=== PATIENT | male | born 1985 | race Asian ===

== ENCOUNTER 2018-06-19 12:57 | Emergency (ER) | payer OTHER ==
--- NOTE | 2018-06-19 13:07 | ER Report ---
History and Physical Time Seen By MD: 13:07 Hx. of Stated Complaint: INITIALLY HAD HEADACHE FOR 2 WEEKS, TODAY HE STARTED HAVING LEFT UPPER CHEST PAIN. "I JUST WANT TO MAKE SURE I DON'T HAVE CANCER." HPI/ROS CHIEF COMPLAINT: Headache HISTORY OF PRESENT ILLNESS: 33-year-old male patient presents to emergency room with complaint of headache. Patient states this been going on for quite some time. He states that he's had pain that radiated down his head to his neck. He states he is felt warm at times. He states that he has had the pain of his head switch from the right side to the left side back to the right side. He states he is not having nausea, vomiting or diarrhea. Patient states that he's not having difficulties eating. He does have some concerns about possible cancer. He states that he would like to be tested for cancer in his head as well as his chest. He states he does have an appointment for tomorrow with an ENT for further evaluation. Patient states that he is from [place] and the town in which he is from lots of people will develop cancer. He would like to be tested for cancer, especially EB. REVIEW OF SYSTEMS: Respiratory: No cough, no dyspnea. Cardiovascular: No chest pain, no palpitations. Gastrointestinal: No vomiting, no abdominal pain. Musculoskeletal: No back pain. Allergies: Coded Allergies: No Known Drug Allergies (Unverified , 06/19/18) Home Meds Active Scripts Amoxicillin/Pot Clav 875-125 Mg Tab (AUGMENTIN 875-125 TABLET) 1 Each Tablet, 1 TAB PO Q12H, #14 TAB Prov:JON NIXON 06/19/18 Past Medical/Surgical History Patient has no pertinent medical or surgical history. Reviewed Nurses Notes: Yes Hx Substance Use Disorder: No Constitutional Vital Sign - Last 24 Hours 06/19/18 06/19/18 06/19/18 06/19/18 13:03 13:04 13:30 14:30 Temp 98.4 Pulse 114 104 102 Resp 20 74 40 B/P (MAP) 144/85 144/85 (104) 128/88 (101) 121/91 (101) Pulse Ox 91 93 92 O2 Delivery Room Air 06/19/18 06/19/18 15:00 15:31 Pulse 104 Resp 18 B/P (MAP) 125/86 (99) 127/91 (103) Physical Exam General Appearance: The patient is alert, has no immediate need for airway protection and no current signs of toxicity. Respiratory: Chest is non tender, lungs are clear to auscultation. Cardiac: regular rate and rhythm Gastrointestinal: Abdomen is soft and non tender, no masses, bowel sounds normal. Musculoskeletal: Neck: Neck is supple and non tender. Extremities have full range of motion and are non tender. Skin: No rashes or lesions. Neuro: Patient is alert and oriented 4, cranial nerves II through XII grossly intact. DIFFERENTIAL DIAGNOSIS: After history and physical exam differential diagnosis was considered for headache including but not limited to subarachnoid hemorrhage, migraine headache, tension headache and infectious causes such as meningitis, pharyngitis and sinusitis. Medical Decision Making Data Points Result Diagram: 06/19/18 1335 06/19/18 1335 Laboratory Hematology Test 06/19/18 13:35 Red Blood Count 5.54 M/uL (4.00-5.60) Mean Corpuscular Volume 90.4 fL (80.0-96.0) Mean Corpuscular Hemoglobin 31.1 pg (26.0-33.0) Mean Corpuscular Hemoglobin Concent 34.4 g/dL (32.0-36.0) Red Cell Distribution Width 12.9 % (11.5-14.5) Mean Platelet Volume 8.0 fL (7.2-11.1) Neutrophils (%) (Auto) 81.1 % (39.4-72.5) Lymphocytes (%) (Auto) 13.0 % (17.6-49.6) Monocytes (%) (Auto) 5.4 % (4.1-12.4) Eosinophils (%) (Auto) 0.1 % (0.4-6.7) Basophils (%) (Auto) 0.4 % (0.3-1.4) Nucleated RBC Relative Count (auto) 0.1 /100WBC Neutrophils # (Auto) 5.2 K/uL (2.0-7.4) Lymphocytes # (Auto) 0.8 K/uL (1.3-3.6) Monocytes # (Auto) 0.3 K/uL (0.3-1.0) Eosinophils # (Auto) 0.0 K/uL (0.0-0.5) Basophils # (Auto) 0.0 K/uL (0.0-0.1) Nucleated RBC Absolute Count (auto) 0.00 K/uL Erythrocyte Sedimentation Rate 7 mm/HOUR (0-15) Sodium Level 138 mmol/L (137-145) Potassium Level 3.7 mmol/L (3.5-5.0) Chloride Level 102 mmol/L (98-107) Carbon Dioxide Level 24 mmol/L (22-30) Blood Urea Nitrogen 7 mg/dl (9-21) Creatinine 1.10 mg/dl (0.66-1.25) Glomerular Filtration Rate Calc > 60.0 Random Glucose 173 mg/dl (75-110) Calcium Level 9.3 mg/dl (8.4-10.2) Total Bilirubin 0.5 mg/dl (0.2-1.3) Aspartate Amino Transf (AST/SGOT) 31 U/L (0-35) Alanine Aminotransferase (ALT/SGPT) 41 U/L (0-56) Alkaline Phosphatase 57 U/L (0-126) C-Reactive Protein < 0.5 mg/dl (<1.0) Total Protein 8.0 g/dl (6.3-8.2) Albumin 4.5 g/dl (3.5-5.0) Chemistry Test 06/19/18 13:35 White Blood Count 6.3 k/uL (4.5-11.0) Red Blood Count 5.54 M/uL (4.00-5.60) Hemoglobin 17.2 g/dL (14.0-18.0) Hematocrit 50.1 % (42.0-52.0) Mean Corpuscular Volume 90.4 fL (80.0-96.0) Mean Corpuscular Hemoglobin 31.1 pg (26.0-33.0) Mean Corpuscular Hemoglobin Concent 34.4 g/dL (32.0-36.0) Red Cell Distribution Width 12.9 % (11.5-14.5) Platelet Count 241 K/uL (150-450) Mean Platelet Volume 8.0 fL (7.2-11.1) Neutrophils (%) (Auto) 81.1 % (39.4-72.5) Lymphocytes (%) (Auto) 13.0 % (17.6-49.6) Monocytes (%) (Auto) 5.4 % (4.1-12.4) Eosinophils (%) (Auto) 0.1 % (0.4-6.7) Basophils (%) (Auto) 0.4 % (0.3-1.4) Nucleated RBC Relative Count (auto) 0.1 /100WBC Neutrophils # (Auto) 5.2 K/uL (2.0-7.4) Lymphocytes # (Auto) 0.8 K/uL (1.3-3.6) Monocytes # (Auto) 0.3 K/uL (0.3-1.0) Eosinophils # (Auto) 0.0 K/uL (0.0-0.5) Basophils # (Auto) 0.0 K/uL (0.0-0.1) Nucleated RBC Absolute Count (auto) 0.00 K/uL Erythrocyte Sedimentation Rate 7 mm/HOUR (0-15) Glomerular Filtration Rate Calc > 60.0 Calcium Level 9.3 mg/dl (8.4-10.2) Total Bilirubin 0.5 mg/dl (0.2-1.3) Aspartate Amino Transf (AST/SGOT) 31 U/L (0-35) Alanine Aminotransferase (ALT/SGPT) 41 U/L (0-56) Alkaline Phosphatase 57 U/L (0-126) C-Reactive Protein < 0.5 mg/dl (<1.0) Total Protein 8.0 g/dl (6.3-8.2) Albumin 4.5 g/dl (3.5-5.0) EKG/Imaging Imaging EXAMINATION: CT neck with IV contrast HISTORY: Throat pain. COMPARISON: None. TECHNIQUE: Spiral scan was obtained from the hard palate through the upper c hest during injection of nonionic iodinated intravenous contrast. Sagittal and coronal reformatted images are also submitted. CONTRAST: 75 mL of IV Isovue-370 One of the following dose optimization techniques was utilized in the performance of this exam: Automated exposure control; adjustment of the mA and/or kV according to the patient's size; or use of an iterative reconstruction technique. Specific details can be referenced in the facility's radiology CT exam operational policy. FINDINGS: Masses/lesions: None. Airway: Normal. Vessels: Negative. Musculoskeletal / Body wall: Mild kyphotic curvature of the cervical spine. Lymph node assessment: Mildly prominent pretracheal lymph nodes, the largest measuring up to 9 mm in short axis. Visualized orbits / brain / paranasal sinuses: Mild mucosal thickening in the maxillary sinuses. Upper chest: Negative. IMPRESSION: Mild prominence of pretracheal lymph nodes in the upper mediastinum. Otherwise no CT evidence of acute pathology in the neck. Report Dictated By: Rainer Rowe MD at 06/19/2018 2:44 PM Report E-Signed By: Rainer Rowe MD at 06/19/2018 2:52 PM 2 VIEWS CHEST INDICATION: Chest pain. Right upper quadrant pain. COMPARISON: None available FINDINGS: Cardiomediastinal silhouette and pulmonary vessels within normal limits. There is no focal infiltrate or lobar consolidation. There is no pneumothorax or pleural effusion. No nodule. Upper abdomen is unremarkable. No acute bony abnormality. IMPRESSION: 1. No acute cardiopulmonary process. Report Dictated By: Rufino Guzman at 06/19/2018 2:50 PM Report E-Signed By: Rufino Guzman at 06/19/2018 2:52 PM EXAMINATION: Head CT without intravenous contrast HISTORY: Headache. COMPARISON: None. TECHNIQUE: Contiguous axial images were obtained from the skull base to the vertex without intravenous contrast. Sagittal and coronal reformatted images are also submitted. One of the following dose optimization techniques was utilized in the performance of this exam: Automated exposure control; adjustment of the mA and/or kV according to the patient's size; or use of an iterative reconstruction technique. Specific details can be referenced in the facility's radiology CT exam operational policy. FINDINGS: Brain and intracranial structures: Ventricles, sulci, and cisterns are normal in size. Rose-white matter differentiation is maintained. No midline shift, acute hemorrhage, acute infarct, or mass. Calvarium / scalp: Negative. Skull base / visualized face: Negative. Visualized sinuses / orbits: Mild mucosal thickening in the maxillary sinuses. IMPRESSION: No CT evidence of acute intracranial pathology. Report Dictated By: Rainer Rowe MD at 06/19/2018 2:36 PM Report E-Signed By: Rainer Rowe MD at 06/19/2018 2:44 PM ED Course/Re-evaluation ED Course Patient was admitted to exam room, history and physical were obtained. Differential diagnoses were considered. On examination lungs are clear, heart is regular, abdomen is soft and nontender. A CBC, CMP, chest x-ray, CT scan of the head, soft tissues of the neck were done. Lab results were unremarkable. Imaging results did show some mild thickening of the maxillary sinuses as well as enlarged lymph nodes along the cervical chain. I believe this patient has a sinus infection and this is causing the discomfort and is causing the ears to hurt. I discussed the findings with the patient. He verbalized understanding and agreement with plan. We'll go ahead and place him on some antibiotics and have him follow-up with his ENT tomorrow as previously scheduled. Decision to Disposition Date: Jun 19, 2018 Decision to Disposition Time: 15:17 Depart Departure Latest Vital Signs Vital Signs Date Time Temp Pulse Resp B/P (MAP) Pulse Ox O2 Delivery O2 Flow Rate FiO2 06/19/18 15:31 127/91 (103) 06/19/18 15:00 104 18 06/19/18 14:30 92 06/19/18 13:03 98.4 Room Air Impression: Primary Impression: Sinusitis Condition: Improved Disposition: HOME OR SELF-CARE New Scripts Amoxicillin/Pot Clav 875-125 Mg Tab (AUGMENTIN 875-125 TABLET) 1 Each Tablet 1 TAB PO Q12H, #14 TAB Prov: JON NIXON 06/19/18 Patient Instructions: Sinusitis (ED) Additional Instructions: Increase fluid intake. Get plenty of rest. Follow up with your ENT tomorrow as directed. There was no cancer found, but you do have enlarged lymph nodes. I believe that the enlarge lymph nodes are caused by the infection in your maxillary sinuses. Problem Qualifiers Primary Impression: Sinusitis Sinusitis location: maxillary Chronicity: acute Recurrence: non- recurrent Qualified Codes: J01.00 - Acute maxillary sinusitis, unspecified JON NIXON Jun 19, 2018 13:07
[2018-06-19] MEDS ORDERED: NS(*) 0.9% 1000 ML BAG 1,000 ML IV ONE (13:15)
[2018-06-19 13:48] LABS: PLATELET COUNT, AUTOMATED 241 K/uL (150-450)
--- NOTE | 2018-06-19 13:48 | EKG ---
FACILITY: [facility] - [place] PATIENT NAME: OTIS DAY : [id number] MR: [id number] V: [id number] EXAM DATE: ORDERING PHYSICIAN: JON NIXON TECHNOLOGIST: Test Reason : Blood Pressure : / mmHG Vent. Rate : 108 BPM Atrial Rate : 108 BPM P-R Int : 136 ms QRS Dur : 088 ms QT Int : 334 ms P-R-T Axes : 063 073 041 degrees QTc Int : 447 ms Sinus tachycardia Otherwise normal ECG No previous ECGs available Confirmed by TUSHAR ELDER ([id number]) on 06/20/2018 6:27:42 AM Referred By: Confirmed By:TUSHAR ELDER
[2018-06-19] MEDS ORDERED: IOPAMIDOL 76% 100 ML INFUS BTL 100 ML ONE (14:05)
--- NOTE | 2018-06-19 14:48 | RADIOLOGY IMAGING REPORT ---
FACILITY: [facility] PATIENT NAME: Pavan Santos : 1985 MR: [id number] V: [id number] EXAM DATE: ORDERING PHYSICIAN: JON NIXON TECHNOLOGIST: Location: [facility] - [place] Patient: Pavan Santos : 1985 Visit/Account:[id number] Date of Sevice: 06/19/2018 EXAMINATION: Head CT without intravenous contrast HISTORY: Headache. COMPARISON: None. TECHNIQUE: Contiguous axial images were obtained from the skull base to the vertex without intraven ous contrast. Sagittal and coronal reformatted images are also submitted. One of the following dose optimization techniques was utilized in the performance of this exam: Autom ated exposure control; adjustment of the mA and/or kV according to the patient's size; or use of an i terative reconstruction technique. Specific details can be referenced in the facility's radiology C T exam operational policy. FINDINGS: Brain and intracranial structures: Ventricles, sulci, and cisterns are normal in size. Rose-white ma tter differentiation is maintained. No midline shift, acute hemorrhage, acute infarct, or mass. Calvarium / scalp: Negative. Skull base / visualized face: Negative. Visualized sinuses / orbits: Mild mucosal thickening in the maxillary sinuses. IMPRESSION: No CT evidence of acute intracranial pathology. Report Dictated By: Rainer Rowe MD at 06/19/2018 2:36 PM Report E-Signed By: Rainer Rowe MD at 06/19/2018 2:44 PM WSN:[id number]
--- NOTE | 2018-06-19 14:56 | RADIOLOGY IMAGING REPORT ---
FACILITY: [facility] - [place] PATIENT NAME: Pavan Santos : 1985 MR: [id number] V: [id number] EXAM DATE: ORDERING PHYSICIAN: JON NIXON TECHNOLOGIST: Location: [facility] - [place] Patient: Pavan Santos : 1985 Visit/Account:[id number] Date of Sevice: 06/19/2018 2 VIEWS CHEST INDICATION: Chest pain. Right upper quadrant pain. COMPARISON: None available FINDINGS: Cardiomediastinal silhouette and pulmonary vessels within normal limits. There is no focal infiltrate or lobar consolidation. There is no pneumothorax or pleural effusion. No nodule. Upper abdomen is unremarkable. No acute bony abnormality. IMPRESSION: 1. No acute cardiopulmonary process. Report Dictated By: Rufino Guzman at 06/19/2018 2:50 PM Report E-Signed By: Rufino Guzman at 06/19/2018 2:52 PM WSN:[id number]
--- NOTE | 2018-06-19 14:56 | RADIOLOGY IMAGING REPORT ---
FACILITY: [facility] PATIENT NAME: Pavan Santos : 1985 MR: [id number] V: [id number] EXAM DATE: ORDERING PHYSICIAN: JON NIXON TECHNOLOGIST: Location: [facility] - [place] Patient: Pavan Santos : 1985 Visit/Account:[id number] Date of Sevice: 06/19/2018 EXAMINATION: CT neck with IV contrast HISTORY: Throat pain. COMPARISON: None. TECHNIQUE: Spiral scan was obtained from the hard palate through the upper chest during injection o f nonionic iodinated intravenous contrast. Sagittal and coronal reformatted images are also submitte d. CONTRAST: 75 mL of IV Isovue-370 One of the following dose optimization techniques was utilized in the performance of this exam: Autom ated exposure control; adjustment of the mA and/or kV according to the patient's size; or use of an i terative reconstruction technique. Specific details can be referenced in the facility's radiology C T exam operational policy. FINDINGS: Masses/lesions: None. Airway: Normal. Vessels: Negative. Musculoskeletal / Body wall: Mild kyphotic curvature of the cervical spine. Lymph node assessment: Mildly prominent pretracheal lymph nodes, the largest measuring up to 9 mm in short axis. Visualized orbits / brain / paranasal sinuses: Mild mucosal thickening in the maxillary sinuses. Upper chest: Negative. IMPRESSION: Mild prominence of pretracheal lymph nodes in the upper mediastinum. Otherwise no CT evidence of acut e pathology in the neck. Report Dictated By: Rainer Rowe MD at 06/19/2018 2:44 PM Report E-Signed By: Rainer Rowe MD at 06/19/2018 2:52 PM WSN:[id number]
[2018-06-19] MEDS ORDERED: AMOX-559 PO (15:26)
[2018-06-19 15:31] VITALS: BP 127/91
== END 2018-06-19 15:45 | disposition home or self-care (01) ==
LOC: ER 13:09
DX: J01.00 Acute maxillary sinusitis, unspecified (principal)
CPT/HCPCS: 70450; 70491; 71046; 85025; 85651; 86140; 93005; 96360; 99284; J7030; Q9967; 82040; 82247; 82310; 82374; 82435; 82565; 82947; 84075; 84132; 84155; 84295; 84450; 84460; 84520